=== PATIENT | female | born 1990 | race Caucasian/White ===

== ENCOUNTER 2017-07-16 09:42 | Inpatient (IN) | payer OTHER ==
--- NOTE | 2017-07-16 10:06 | PDOC ---
History of Present Illness - General History Source: Patient Exam Limitations: No Limitations - History of Present Illness Initial Comments: 07/16/17 10:23 26 y/o F (LMP: about a month ago, on control) with a PMHx of UTIs presents to the ED with diffuse abdominal pain and back pain. She reports associated nausea and one episode of vomiting yesterday. She also reports chills and subjective fever. She describes the abdominal pain as crampy and rates it an 8/10. Her last BM was this morning and was normal, with no blood. She reports that the pain doesn't feel like her usual menstrual cramps or UTI symptoms. She denies diarrhea or constipation. She denies dysuria, hematuria, or other urinary complaints. She denies headache, dizziness. FHx: mother (at 31) and sister (at 19) had gall stones <Sarah Arauz - Last Filed: 07/16/17 12:25> <Jim High - Last Filed: 07/16/17 14:36> - General Chief Complaint: Pain Stated Complaint: BACK PAIN, NAUSEA Time Seen by Provider: 07/16/17 10:00 Past History <Sarah Arauz - Last Filed: 07/16/17 12:25> - Past Medical History Asthma: No Cancer: No Cardiac Disorders: No Diabetes: No HTN: No Seizures: No Thyroid Disease: No Other medical history: none - Reproductive History (#): 2 Para: 1 Therapeutic (s) & number: No - Immunization History Immunization Up to Date: Yes - Suicide/Smoking/Psychosocial Hx Smoking Status: No Smoking History: Never smoked Have you smoked in the past 12 months: No Number of Cigarettes Smoked Daily: 0 Information on smoking cessation initiated: No Hx Alcohol Use: No Drug/Substance Use Hx: No Substance Use Type: None Hx Substance Use Treatment: No <Jim High - Last Filed: 07/16/17 14:36> - Past Medical History Allergies/Adverse Reactions: Allergies Allergy/AdvReac Type Severity Reaction Status Date / Time No Known Allergies Allergy Verified 07/16/17 09:44 Home Medications: Ambulatory Orders NK [No Known Home Medication] 07/16/17 Review of Systems - Review of Systems Able to Perform ROS?: Yes Comments:: 07/16/17 10:23 GENERAL/CONSTITUTIONAL: (+) fever, chills. No weakness. HEAD, EYES, EARS, NOSE AND THROAT: No change in vision. No ear pain or discharge. No sore throat. CARDIOVASCULAR: No chest pain or shortness of breath. RESPIRATORY: No cough, wheezing, or hemoptysis. GASTROINTESTINAL: (+) abdominal pain, nausea, vomiting. No diarrhea or constipation. GENITOURINARY: No dysuria, frequency, or change in urination. MUSCULOSKELETAL: (+) back pain. No joint or muscle swelling or pain. No neck pain. SKIN: No rash NEUROLOGIC: No headache, vertigo, loss of consciousness, or change in strength/ sensation. ENDOCRINE: No increased thirst. No abnormal weight change. HEMATOLOGIC/LYMPHATIC: No anemia, easy bleeding, or history of blood clots. ALLERGIC/IMMUNOLOGIC: No hives or skin allergy. <Sarah Arauz - Last Filed: 07/16/17 12:25> *Physical Exam - Vital Signs Last Vital Signs Temp Pulse Resp BP Pulse Ox 98.2 F 78 18 129/88 100 07/16/17 09:45 07/16/17 09:45 07/16/17 09:45 07/16/17 09:45 07/16/17 09:45 - Physical Exam Comments: 07/16/17 10:23 GENERAL: Awake, alert, and fully oriented, in no acute distress HEAD: No signs of trauma EYES: PERRLA, EOMI, sclera anicteric, conjunctiva clear ENT: Auricles normal inspection, hearing grossly normal, nares patent, oropharynx clear without exudates. Moist mucosa NECK: Normal ROM, supple, no lymphadenopathy, JVD, or masses LUNGS: Breath sounds equal, clear to auscultation bilaterally. No wheezes, and no crackles HEART: Regular rate and rhythm, normal S1 and S2, no murmurs, rubs or gallops ABDOMEN: Positive Pimentel's sign. Soft, normoactive bowel sounds. No guarding, no rebound. No masses. EXTREMITIES: Normal range of motion, no edema. No clubbing or cyanosis. No cords, erythema, or tenderness NEUROLOGICAL: Cranial nerves II through XII grossly intact. Normal speech, normal gait SKIN: Warm, Dry, normal turgor, no rashes or lesions noted. <Sarah Arauz - Last Filed: 07/16/17 12:25> - Vital Signs Last Vital Signs Temp Pulse Resp BP Pulse Ox 98.2 F 78 18 129/88 100 07/16/17 09:45 07/16/17 09:45 07/16/17 09:45 07/16/17 09:45 07/16/17 09:45 <Jim High - Last Filed: 07/16/17 14:36> ED Treatment Course - LABORATORY CBC & Chemistry Diagram: 07/16/17 10:30 07/16/17 10:30 - RADIOLOGY Radiograph Interpretation: 07/16/17 12:26 Abdoemn Ultrasound Limited Reported by Dr. Jillian Bertrand Impression: Over distended/hydrops gallbladder with multiple intraluminal stones , mild thickening of its wall and without evidence of pericholecystic free fluid. However, there is a trace of fluid/ascites seen along the inferior the inferior/posterior margin of the live. Cannot rule out acute cholecystitis. Correlate clinically to determine further evaluation. Dilated common bile duct measuring 7.5 mm for which further evaluation with MRCP is needed to rule out an intraluminal stone. <Sarah Arauz - Last Filed: 07/16/17 12:25> - LABORATORY CBC & Chemistry Diagram: 07/16/17 10:30 07/16/17 10:30 <Jim High - Last Filed: 07/16/17 14:36> *DC/Admit/Observation/Transfer - Attestations Scribe Attestion: 07/16/17 10:23 Documentation prepared by Sarah Arauz, acting as medical office rep for Jim High DO. <Sarah Arauz - Last Filed: 07/16/17 12:25> - Discharge Dispostion Admit: Yes - Attestations Physician Attestion: 07/16/17 10:04 I, Dr. Jim High, attest that this document has been prepared under my direction and personally reviewed by me in its entirety. I further attest, that it accurately reflects all work, treatment, procedures and medical decision -making performed by me. <Jim High - Last Filed: 07/16/17 14:36> Diagnosis at time of Disposition: Acute cholecystitis - Discharge Dispostion Condition at time of disposition: Improved
[2017-07-16] MEDS ORDERED: SODIUM CHLORIDE 1,000 ML IV STA (10:20)
[2017-07-16 10:27] LABS: URINE APPEARANCE CLEAR; URINE BILIRUBIN NEGATIVE (NEGATIVE); URINE BLOOD 1+ (NEGATIVE); URINE COLOR YELLOW; URINE GLUCOSE (UA) NEGATIVE (NEGATIVE); URINE KETONE NEGATIVE (NEGATIVE); URINE NITRITE NEGATIVE (NEGATIVE); URINE PROTEIN NEGATIVE (NEGATIVE)
[2017-07-16 10:30] LABS: URINE MUCUS RARE; URINE RBC 3 /hpf (0-3); URINE WBC 1 /hpf (3-5); YEAST RARE
[2017-07-16 11:19] LABS: ALBUMIN 4.1 g/dl (3.4-5.0); ANION GAP 9 (8-16); CALCIUM 8.9 mg/dL (8.5-10.1); CO2 25 mmol/L (21-32); CREATININE 0.5 mg/dL (0.55-1.02); GLUCOSE,RANDOM 113 mg/dL (74-106); SGOT/AST 946 U/L (15-37); SGPT/ALT 568 U/L (12-78)
[2017-07-16 11:21] LABS: ALK PHOS 81 U/L (45-117); BILIRUBIN,TOTAL 1.9 mg/dL (0.2-1.0); TOT PROT 7.2 g/dl (6.4-8.2)
[2017-07-16 11:36] LABS: BASOPHIL 0.3 % (0-2.0); EOSINOPHIL 0.1 % (0-4.5); MCH 29.5 pg (25.7-33.7); MCHC 33.1 g/dl (32.0-36.0); MEAN PLT VOLUME 10.6 fl (7.5-11.1); NEUTROPHILS 79.8 % (42.8-82.8); PLATELET COUNT 207 K/MM3 (134-434); RDW 14.5 % (11.6-15.6)
[2017-07-16] MEDS ORDERED: METRONIDAZOLE 500 MG PREMIXED 100 ML IVPB ONE ×2 (12:25→13:47)
[2017-07-16] MEDS ORDERED: LEVOFLOXACIN 750 MG IVPB 150 ML IVPB ONE ×2 (12:25→12:34)
--- NOTE | 2017-07-16 16:29 | CONSULT ---
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 PMHx: none PSHx: none Home Medications Medication Instructions Recorded NK [No Known Home Medication] 07/16/17 Allergies Allergy/AdvReac Type Severity Reaction Status Date / Time No Known Allergies Allergy Verified 07/16/17 09:44 REVIEW OF SYSTEMS: as above only PHYSICAL EXAM: GENERAL: Awake, alert, and fully oriented, in no acute distress. HEAD: Normal with no signs of trauma. EYES: sclera anicteric, conjunctiva clear. NECK: Normal ROM, supple without lymphadenopathy, JVD, or masses. ABDOMEN: Soft, nontender, not distended, normoactive bowel sounds, no guarding, no rebound, no masses. No organomegaly. Galbladder palpable in the RUQ MUSCULOSKELETAL: Normal ROM at all joints. No bony deformities or tenderness. No CVA tenderness. UPPER EXTREMITIES: 2+ pulses, warm, well-perfused. No cyanosis. Cap refill <2 seconds. No peripheral edema. LOWER EXTREMITIES: 2+ pulses, warm, well-perfused. No calf tenderness. No peripheral edema. NEUROLOGICAL: Normal speech, gait not observed. PSYCH: Cooperative. Good eye contact. Appropriate mood and affect. SKIN: Warm, dry, normal turgor, no rashes or lesions noted. Vital Signs Temperature 98.2 F 07/16/17 15:48 Pulse Rate 72 07/16/17 15:48 Respiratory Rate 18 07/16/17 15:48 Blood Pressure 109/69 07/16/17 15:48 O2 Sat by Pulse Oximetry (%) 100 07/16/17 15:48 Lab Results WBC 10.0 K/mm3 (4.0-10.0) 07/16/17 10:30 RBC 4.15 M/mm3 (3.60-5.2) 07/16/17 10:30 Hgb 12.2 GM/dL (10.7-15.3) D 07/16/17 10:30 Hct 37.0 % (32.4-45.2) 07/16/17 10:30 MCV 89.0 fl (80-96) 07/16/17 10:30 MCHC 33.1 g/dl (32.0-36.0) 07/16/17 10:30 RDW 14.5 % (11.6-15.6) D 07/16/17 10:30 Plt Count 207 K/MM3 (134-434) D 07/16/17 10:30 Sodium 137 mmol/L (136-145) 07/16/17 10:30 Potassium 3.7 mmol/L (3.5-5.1) 07/16/17 10:30 Chloride 103 mmol/L (98-107) 07/16/17 10:30 Carbon Dioxide 25 mmol/L (21-32) 07/16/17 10:30 Anion Gap 9 (8-16) 07/16/17 10:30 BUN 8 mg/dL (7-18) 07/16/17 10:30 Creatinine 0.5 mg/dL (0.55-1.02) L D 07/16/17 10:30 Random Glucose 113 mg/dL (74-106) H D 07/16/17 10:30 Calcium 8.9 mg/dL (8.5-10.1) 07/16/17 10:30 US/labs/w/u to date reviewed IMP: cholelithiasis; r/o choledocholithiasis PLAN: Suggest NPO/IVF/IVABS?/MRCP to evaluate for CBD stones and if positive GI evaluation for possible ERCP and related procedures and eventual lap taylor; will f/u; d/w the patient in depth Uday Copeland MD FACS Visit type - Case Type Case Type: ED Admission - Emergency Emergency Visit: Yes ED Registration Date: 07/16/17 Care time: The patient presented to the Emergency Department on the above date and was hospitalized for further evaluation of their emergent condition. - New patient This patient is new to me today: Yes Date on this admission: 07/16/17 - Critical Care Critical Care patient: No
--- NOTE | 2017-07-16 17:00 | HP ---
Admitting History and Physical - Primary Care Physician PCP: George Wright - Admission Chief Complaint: ruq pain History of Present Illness: 26 y/o F (LMP: about a month ago, on control) with a PMHx of UTIs presents to the ED with diffuse abdominal pain and back pain. She reports associated nausea and one episode of vomiting yesterday. pt also had chills , abdominal pain was crampy and rates it an 8/10. - Past Medical History ...LMP: 07/26/13 - Smoking History Smoking history: Never smoked Have you smoked in the past 12 months: No Aproximately how many cigarettes per day: 0 - Alcohol/Substance Use Hx Alcohol Use: No History of Substance Use: reports: None - Social History ADL: Independent History of Recent Travel: No Home Medications - Allergies Allergies/Adverse Reactions: Allergies Allergy/AdvReac Type Severity Reaction Status Date / Time No Known Allergies Allergy Verified 07/16/17 09:44 - Home Medications Home Medications: Ambulatory Orders NK [No Known Home Medication] 07/16/17 Physical Examination Vital Signs: Vital Signs Temperature 98.2 F 07/16/17 15:48 Pulse Rate 72 07/16/17 15:48 Respiratory Rate 18 07/16/17 15:48 Blood Pressure 109/69 07/16/17 15:48 O2 Sat by Pulse Oximetry (%) 100 07/16/17 15:48 Constitutional: Yes: No Distress HENT: Yes: Atraumatic Neck: Yes: Supple Cardiovascular: Yes: Regular Rate and Rhythm Respiratory: Yes: CTA Bilaterally Gastrointestinal: Yes: Normal Bowel Sounds, Tenderness (ruq) Extremities: Yes: WNL Neurological: Yes: Alert, Oriented Imaging - Results Ultrasound: Report Reviewed Problem List - Problems (1) Acute cholecystitis Assessment/Plan: for mrcp possible surgery Code(s): K81.0 - ACUTE CHOLECYSTITIS Assessment/Plan Laboratory Tests 07/16/17 07/16/17 07/16/17 10:13 10:30 10:30 WBC 10.0 RBC 4.15 Hgb 12.2 D Hct 37.0 MCV 89.0 MCH 29.5 MCHC 33.1 RDW 14.5 D Plt Count 207 D MPV 10.6 Neutrophils % 79.8 Lymphocytes % 8.8 D Monocytes % 11.0 H Eosinophils % 0.1 Basophils % 0.3 Sodium 137 Potassium 3.7 Chloride 103 Carbon Dioxide 25 Anion Gap 9 BUN 8 Creatinine 0.5 L D Creat Clearance w eGFR > 60 Random Glucose 113 H D Calcium 8.9 Total Bilirubin 1.9 H D AST 946 H D ALT 568 H D Alkaline Phosphatase 81 D Total Protein 7.2 Albumin 4.1 D Urine Color Yellow Urine Appearance Clear Urine pH 7.0 D Urine Protein Negative Urine Glucose (UA) Negative Urine Ketones Negative Urine Blood 1+ H Urine Nitrite Negative Urine Bilirubin Negative Urine Urobilinogen 2.0 H Urine RBC 3 Urine WBC 1 Ur Epithelial Cells Few Urine Mucus Rare Urine Yeast Rare Urine HCG, Qual Negative Active Medications Generic Name Dose Route Start Last Admin Trade Name Freq PRN Reason Stop Dose Admin Fentanyl 50 mcg 07/18/17 13:35 07/18/17 14:55 Sublimaze Injection - IVPUSH 07/21/17 13:36 25 mcg [id number] PRN Administration PAIN Sodium Chloride 1,000 mls @ 100 mls/hr 07/18/17 13:59 Normal Saline - IV ASDIR [facility] Morphine Sulfate 2 mg 07/18/17 15:05 Morphine Injection - IVPUSH Q6H PRN PAIN LEVEL 6-10 Ondansetron HCl 4 mg 07/18/17 13:35 07/18/17 14:30 Zofran Injection IVPUSH 07/18/17 19:36 4 mg Q6H PRN Administration NAUSEA AND/OR VOMITING Oxycodone HCl 5 mg 07/18/17 13:41 Roxicodone - PO Q6H PRN PAIN LEVEL 1-5 Oxycodone HCl 10 mg 07/18/17 13:42 Roxicodone - PO Q6H PRN PAIN LEVEL 6-10 Promethazine HCl 12.5 mg 07/18/17 13:35 Phenergan Injection - IVPUSH 07/18/17 19:36 Q6H PRN NAUSEA-FOR RESCUE AFTER 15 MIN
[2017-07-16] MEDS ORDERED: HYDROmorphone HCL CARPU-JECT 1 MG/1 ML DISP.SYRIN IVPB PRN (17:02)
[2017-07-16 17:14] VITALS: BMI 25.4
[2017-07-16] MEDS ORDERED: FLU VACCINE QUAD 60 MCG/0.5 ML (MDV 17-18) IM ONE (17:15)
[2017-07-16] MEDS ORDERED: cefTRIAXone SODIUM 1 GM VIAL ONE (17:21)
[2017-07-16] MEDS ORDERED: DEXTROSE 5%-WATER - 50 ML IVPB ONE (17:21)
[2017-07-16] MEDS: SODIUM CHLORIDE 1,000 ML IV SCH (17:36)
[2017-07-16] MEDS: CEFTRIAXONE 1 GM in DEXTROSE 5%-WATER - 50 ML IVPB SCH (17:38)
[2017-07-17] MEDS: SODIUM CHLORIDE 1,000 ML IV SCH ×3 (04:20→18:00)
[2017-07-17 08:26] LABS: BASOPHIL 0.4 % (0-2.0); EOSINOPHIL 2.1 % (0-4.5); MCH 29.5 pg (25.7-33.7); MCHC 32.9 g/dl (32.0-36.0); MEAN CELL VOLUME 89.5 fl (80-96); MEAN PLT VOLUME 10.7 fl (7.5-11.1); NEUTROPHILS 61.6 % (42.8-82.8); PLATELET COUNT 179 K/MM3 (134-434); RDW 14.7 % (11.6-15.6); WHITE BLOOD COUNT 7.1 K/mm3 (4.0-10.0)
[2017-07-17 08:56] LABS: ALBUMIN 3.3 g/dl (3.4-5.0); ALK PHOS 94 U/L (45-117); ANION GAP 11 (8-16); BILIRUBIN,TOTAL 2.1 mg/dL (0.2-1.0); CALCIUM 8.5 mg/dL (8.5-10.1); CO2 24 mmol/L (21-32); CREATININE 0.5 mg/dL (0.55-1.02); GLUCOSE,RANDOM 80 mg/dL (74-106); SGOT/AST 377 U/L (15-37); TOT PROT 6.1 g/dl (6.4-8.2)
[2017-07-17] MEDS ORDERED: DEXTROSE 5%-WATER - 50 ML IVPB ONE (09:11)
[2017-07-17] MEDS ORDERED: cefTRIAXone SODIUM 1 GM VIAL ONE (09:11)
[2017-07-17] MEDS: CEFTRIAXONE 1 GM in DEXTROSE 5%-WATER - 50 ML IVPB SCH (09:17)
--- NOTE | 2017-07-17 09:22 | PN ---
Progress Note (short form) - Note Progress Note: Attending Surgeon No c/o per se; wants to eat VSS AF abdomen-soft; non tender; gallbladder ? not as easily palpated today; o/w negative. WBC-wnl LFT's pending today MRI ordered and pending IMP: cholelithiasis; r/o choledocholithiasis PLAN: Continue present tx.; further plan pending MRCP and results of repeat LFT' s. Uday Copeland MD FACS
[2017-07-17 09:29] LABS: SGPT/ALT 619 U/L (12-78)
--- NOTE | 2017-07-17 17:45 | PN ---
Progress Note, Physician - Current Medication List Current Medications: Active Medications Hydromorphone HCl (Dilaudid Injection -) 1 mg IVPB Q3H PRN PRN Reason: PAIN Sodium Chloride (Normal Saline -) 1,000 mls @ 100 mls/hr IV ASDIR [facility] Last Admin: 07/17/17 15:09 Dose: 100 mls/hr Ceftriaxone Sodium 1 gm/ (Dextrose) 50 mls @ 100 mls/hr IVPB DAILY [facility] Last Admin: 07/17/17 09:17 Dose: 100 mls/hr - Objective Vital Signs: Vital Signs Temperature 98.0 F 07/17/17 15:13 Pulse Rate 70 07/17/17 15:13 Respiratory Rate 18 07/17/17 15:13 Blood Pressure 104/58 07/17/17 15:13 O2 Sat by Pulse Oximetry (%) 98 07/17/17 09:00 Constitutional: Yes: No Distress HENT: Yes: Atraumatic Neck: Yes: Supple Cardiovascular: Yes: Regular Rate and Rhythm Respiratory: Yes: CTA Bilaterally Gastrointestinal: Yes: Normal Bowel Sounds Extremities: Yes: WNL Neurological: Yes: Alert, Oriented Labs: CBC, BMP 07/17/17 06:00 07/17/17 06:00 Problem List - Problems (1) Acute cholecystitis Assessment/Plan: for mrcp saw surgery note Code(s): K81.0 - ACUTE CHOLECYSTITIS
--- NOTE | 2017-07-18 08:13 | PN ---
Progress Note (short form) - Note Progress Note: 26 yo female admitted with RUQ tenderness. Currently, resting comfortably without complaint. S/p MRCP yesterday which identified acute cholycystitis without biliary obstruction. T.bili is rising yet AST/ALT improving. Denies n/v/f/c, abd pain, CP or SOB. Last Vital Signs Temp Pulse Resp BP Pulse Ox 98.3 F 90 20 113/57 99 07/18/17 05:51 07/18/17 05:51 07/18/17 05:51 07/18/17 05:51 07/17/17 20:49 TRENDS 07/16/17 07/16/17 07/17/17 10:30 10:30 06:00 WBC 10.0 7.1 Total Bilirubin 1.9 H D 2.1 AST 946 H D 377 ALT 568 H D 619 Gen: alert. nad abd: soft. nt. nd. Le: soft. nt bilat Problem List - Problems (1) Acute cholecystitis Assessment/Plan: Awaiting results of morning LFTs. If still elevated, we recommend getting GI Consult. Plan on lap taylor 07/20/17 if no GI intervention needed. Medical optimization / clearance for impending surgical procedure. Code(s): K81.0 - ACUTE CHOLECYSTITIS
[2017-07-18] MEDS ORDERED: cefTRIAXone SODIUM 1 GM VIAL ONE (09:03)
[2017-07-18] MEDS ORDERED: DEXTROSE 5%-WATER - 50 ML IVPB ONE (09:04)
[2017-07-18] MEDS: CEFTRIAXONE 1 GM in DEXTROSE 5%-WATER - 50 ML IVPB SCH (09:07)
[2017-07-18 09:18] LABS: ALBUMIN 3.4 g/dl (3.4-5.0); BILIRUBIN,DIRECT 0.3 mg/dL (0.0-0.2); BILIRUBIN,TOTAL 1.5 mg/dL (0.2-1.0); TOT PROT 6.3 g/dl (6.4-8.2)
[2017-07-18] MEDS ORDERED: BUPIVACAINE HCL/PF 0.5% (5MG/ML) 10 ML VIAL ONE (10:58)
[2017-07-18] MEDS ORDERED: MIDAZOLAM HCL 2 MG/2 ML SINGLE DOSE VIAL ONE (10:59)
[2017-07-18] MEDS ORDERED: ROCURONIUM BROMIDE 50 MG/5 ML VIAL ONE ×2 (11:00→11:54)
[2017-07-18] MEDS ORDERED: PROPOFOL 20 ML ONE ×2 (11:00)
[2017-07-18] MEDS ORDERED: GLYCOPYRROLATE 0.2 MG/1 ML VIAL ONE (12:14)
[2017-07-18] MEDS ORDERED: LIDOCAINE HCL/PF 2% SDV 5ML VIAL ONE (12:14)
[2017-07-18] MEDS ORDERED: NEOSTIGMINE METHYLSULFATE 0.5 MG/ML - 10 ML MDV ONE (12:14)
[2017-07-18] MEDS ORDERED: KETOROLAC TROMETHAMINE 30 MG/1 ML VIAL ONE (12:14)
[2017-07-18] MEDS ORDERED: LIDOCAINE HCL 2% JELLY (5 ML/TUBE) ONE (12:14)
[2017-07-18] MEDS ORDERED: DEXAMETHASONE SOD PHOSPHATE 4 MG/1 ML VIAL ONE (12:14)
[2017-07-18] MEDS ORDERED: BUPIVACAINE HCL/PF 0.5% (5MG/ML) 10 ML VIAL IJ ONE ×3 (13:19)
[2017-07-18] MEDS ORDERED: PROMETHAZINE HCL 25 MG/1 ML VIAL IVPUSH PRN (13:35)
[2017-07-18] MEDS ORDERED: ONDANSETRON 4 MG/2 ML VIAL IVPUSH PRN (13:35)
[2017-07-18] MEDS ORDERED: oxyCODONE HCL 5 MG TABLET PO PRN (13:42)
[2017-07-18] MEDS ORDERED: SODIUM CHLORIDE 1,000 ML IV SCH (13:59)
[2017-07-18] MEDS ORDERED: ONDANSETRON 4 MG/2 ML VIAL ONE (14:29)
--- NOTE | 2017-07-18 14:57 | OP ---
Operative Note - Note: Operative Date: 07/18/17 Pre-Operative Diagnosis: acute cholecystitis, cholelithiasis Operation: laparoscopic cholecystectomy Surgeon: Uday Copeland Apartment Assistant Manager: Angelina Aragon Anesthesiologist/SIGN PAINTER: Vivek Shepard Anesthesia: General Specimens Removed: cecum/appendix Estimated Blood Loss (mls): 20 Fluid Volume Replaced (mls): 1,200 Operative Report Dictated: Yes
--- NOTE | 2017-07-18 14:58 | SURG ---
Surgery Roll Up Helper Note Roll Up Helper: Angelina Aragon PA-C Date of Service: 07/18/17 Diagnosis: acute cholecystitis, cholelithiasis Procedure: laparoscopic cholecystectomy I was present for the entirety of the operative procedure. For further detail, please refer to operative report. Visit type - Case Type Case Type: ED Admission - Emergency Emergency Visit: Yes ED Registration Date: 07/16/17 Care time: The patient presented to the Emergency Department on the above date and was hospitalized for further evaluation of their emergent condition. - New patient This patient is new to me today: Yes Date on this admission: 07/18/17 - Critical Care Critical Care patient: No
[2017-07-18] MEDS ORDERED: morphine CARPU-JECT 2 MG/1 ML DISP.SYRIN IVPUSH PRN (15:05)
--- NOTE | 2017-07-18 19:02 | PN ---
Progress Note, Physician History of Present Illness: some pain at surgery site - Current Medication List Current Medications: Active Medications Fentanyl (Sublimaze Injection -) 50 mcg IVPUSH [id number] PRN PRN Reason: PAIN Stop: 07/21/17 13:36 Last Admin: 07/18/17 14:55 Dose: 25 mcg Sodium Chloride (Normal Saline -) 1,000 mls @ 100 mls/hr IV ASDIR [facility] Morphine Sulfate (Morphine Injection -) 2 mg IVPUSH Q6H PRN PRN Reason: PAIN LEVEL 6-10 Ondansetron HCl (Zofran Injection) 4 mg IVPUSH Q6H PRN PRN Reason: NAUSEA AND/OR VOMITING Stop: 07/18/17 19:36 Last Admin: 07/18/17 14:30 Dose: 4 mg Oxycodone HCl (Roxicodone -) 5 mg PO Q6H PRN PRN Reason: PAIN LEVEL 1-5 Oxycodone HCl (Roxicodone -) 10 mg PO Q6H PRN PRN Reason: PAIN LEVEL 6-10 Promethazine HCl (Phenergan Injection -) 12.5 mg IVPUSH Q6H PRN PRN Reason: NAUSEA-FOR RESCUE AFTER 15 MIN Stop: 07/18/17 19:36 - Objective Vital Signs: Vital Signs Temperature 97.8 F 07/18/17 15:58 Pulse Rate 86 07/18/17 15:58 Respiratory Rate 18 07/18/17 15:58 Blood Pressure 96/68 07/18/17 15:58 O2 Sat by Pulse Oximetry (%) 99 07/18/17 15:58 HENT: Yes: Atraumatic Neck: Yes: Supple Cardiovascular: Yes: Regular Rate and Rhythm Respiratory: Yes: CTA Bilaterally Gastrointestinal: Yes: Normal Bowel Sounds, Tenderness (at the surgery site) Extremities: Yes: WNL Edema: No Peripheral Pulses WNL: Yes Neurological: Yes: Alert, Oriented Labs: CBC, BMP 07/17/17 06:00 07/17/17 06:00 Problem List - Problems (1) Acute cholecystitis Assessment/Plan: s/p cholecystectomy advance diet as tolerated Code(s): K81.0 - ACUTE CHOLECYSTITIS Assessment/Plan dc in am if stable
[2017-07-18] MEDS: oxyCODONE HCL 5 MG TABLET PO PRN (21:47)
[2017-07-19] MEDS: oxyCODONE HCL 5 MG TABLET PO PRN (06:10)
[2017-07-19 06:32] VITALS: TEMP 98.7
[2017-07-19 07:33] LABS: BASOPHIL 0.2 % (0-2.0); EOSINOPHIL 0.2 % (0-4.5); MCH 29.7 pg (25.7-33.7); MCHC 33.7 g/dl (32.0-36.0); MEAN CELL VOLUME 88.1 fl (80-96); MEAN PLT VOLUME 10.2 fl (7.5-11.1); NEUTROPHILS 74.4 % (42.8-82.8); PLATELET COUNT 194 K/MM3 (134-434); RDW 14.2 % (11.6-15.6); WHITE BLOOD COUNT 10.8 K/mm3 (4.0-10.0)
[2017-07-19 07:47] LABS: ALBUMIN 3.2 g/dl (3.4-5.0); ANION GAP 8 (8-16); BILIRUBIN,DIRECT 0.2 mg/dL (0.0-0.2); CALCIUM 8.7 mg/dL (8.5-10.1); CO2 24 mmol/L (21-32); CREATININE 0.5 mg/dL (0.55-1.02); GLUCOSE,RANDOM 82 mg/dL (74-106); SGOT/AST 62 U/L (15-37); SGPT/ALT 292 U/L (12-78); TOT PROT 6.1 g/dl (6.4-8.2)
[2017-07-19 07:48] LABS: ALK PHOS 70 U/L (45-117)
--- NOTE | 2017-07-19 08:43 | PN ---
Progress Note (short form) - Note Progress Note: Anesthesiology Post-op POD#1 s/p laparoscopic cholecystectomy under GA. Pt is sitting up in bed. She feels well and though she c/o pain, the medications do help. She is eating without difficulty. No apparent anesthesia-related issues. VSS.
--- NOTE | 2017-07-19 10:43 | PN ---
Progress Note (short form) - Note Progress Note: Attending Surgeon POD #1 Minimal c/o port site tenderness; tolerated diet and voided VSS AF abdomen-soft; flat; port site dressings c/d/i labs noted IMP: stable post op day # 1 s/p lap taylor PLAN: D/c to office f/u w/me 7-10 days post op. Uday Copeland MD FACS
[2017-07-19 12:34] VITALS: BP 120/79; PULSE 92
--- NOTE | 2017-07-19 15:51 | PATH ---
Surgical Pathology Report Patient Name: ISELA MCCAIN Med. Rec. #: [id number] /Age/Gender: 1990 (Age: 26) / F Account: [id number] Location: [address] [place] [address]/[facility] Taken: 07/18/2017 Received: 07/18/2017 Reported: 07/19/2017 Physicians: Jassi Hendrix MD Specimen(s) Received GALLBLADDER Clinical History Acute cholecystitis Final Diagnosis GALLBLADDER, CHOLECYSTECTOMY: CHRONIC CHOLECYSTITIS AND CHOLELITHIASIS. Electronically Signed Quinten Fraga M.D. Gross Description Received in formalin, labeled "gallbladder," is a 13.0 x 3.3 x 3.0 cm. gallbladder with a 0.2 cm. in length portion of cystic duct attached. The outer surface is chowdhury-pink and varies from smooth to shaggy. The lumen contains clear, tenacious bile as well as multiple green, irregular to fragmented choleliths ranging from 0.5-1.0 cm in greatest dimension. The mucosa is chowdhury and eroded. The wall of the gallbladder ranges from 0.1-0.4 cm. in thickness. Wire Fence Erector sections are submitted in one cassette. 07/18/201707/18/2017
--- NOTE | 2017-07-19 17:54 | DS ---
Physical Examination Vital Signs: Vital Signs Temperature 98.7 F 07/19/17 06:00 Pulse Rate 92 H 07/19/17 10:00 Respiratory Rate 18 07/19/17 10:00 Blood Pressure 120/79 07/19/17 10:00 O2 Sat by Pulse Oximetry (%) 100 07/18/17 21:00 Labs: CBC, BMP 07/19/17 06:40 07/19/17 06:40 Discharge Summary Reason For Visit: ACUTE CHOLECYSTITIS Condition: Improved - Instructions Diet, Activity, Other Instructions: Dr. Copeland Discharge Instructions Dear ISELA MCCAIN, Post Operative Instructions Physical activity Resume your normal everyday activity as tolerated no heavy lifting or exercise until seen by your surgeon. You may walk unlimited amounts of and climb stairs. You may resume driving the car when you feel safe and comfortable behind the wheel. Wound care If you have a bandage, leave it on, and keep dry for 48 - 72 hours. After that time discard the outer bandage. If there are tapes on the skin under the outer bandage, leave them in place. They will peel off in the next 7 to 10 days. Do Not peel them off. You may shower 2 days after surgery. If there are tapes present on the skin, they can get wet. Diet There are no dietary restrictions. Eat healthy, high-fiber foods. Drink 6 to 8 glasses of liquid each day. This will assist in keeping your bowels are regular. Pain management You may take Tylenol or acetaminophen or Ibuprofen (for example, Motrin, Advil etc.) Any pain prescription medication ordered should be taken as prescribed for moderate to severe pain. Call Dr. Copeland for any of the following: Severe pain not relieved by medication Fever of 101 or higher Excessive bleeding or drainage on dressing Call the office at [phone] for a post operative appointment in 7 - 10 days. Disposition: HOME - Home Medications Comprehensive Discharge Medication List: Ambulatory Orders NK [No Known Home Medication] 07/16/17 dc home
--- NOTE | 2017-07-20 09:59 | OP ---
DATE OF OPERATION: 07/18/2017 PREOPERATIVE DIAGNOSIS: Acute cholecystitis, cholelithiasis. PREOPERATIVE DIAGNOSIS: Acute cholecystitis, cholelithiasis. PROCEDURE: Laparoscopic cholecystectomy. SURGEON: Uday Copeland MD INSPECTOR EYEGLASS: LUISANA Goodman and Emily Sweeney PA-C FINDINGS: There was acute chronic cholecystitis and cholelithiasis. There was a prominent anterior branch of the cystic artery and a smaller posterior branch. The rest of the findings were unremarkable. DESCRIPTION OF PROCEDURE: The patient was placed on the operating room table in supine position. After the induction of general anesthesia, the patient's abdomen was prepped with ChloraPrep and draped in sterile fashion. Time-out was taken and then pneumoperitoneum established above the umbilicus using a Veress needle to a pressure of 15 mmHg. A 5-mm port was placed and laparoscopy carried out, and the previously noted findings were observed. Additional 5-mm lateral ports in the subxiphoid, 12-mm port was placed, and the gallbladder was placed on cephalad and lateral traction and the peritoneum opened over the neck of the gallbladder using electrocautery. Prior to this, the gallbladder was decompressed using an aspirating needle. The cystic duct was identified and dissected proximally and distally for length and the cystic artery identified as well. A critical view of safety was taken and then the duct was divided between large hemoclips twice proximally and twice distally. The anterior branch of the cystic artery was traced all the way up onto the gallbladder and was divided proximally and distally with 10-mm hemoclips. The posterior branch was similarly identified and clipped with 5-mm hemoclips and divided. The gallbladder was then removed from the liver bed in a retrograde fashion using electrocautery and then placed in an EndoCatch and brought out through the subxiphoid port. Pneumoperitoneum was re-established. Irritation was carried out, hemostasis verified and then all ports were removed under laparoscopic vision without evidence of bleeding from any of the port sites. The pneumoperitoneum was evacuated, and all port sites were infiltrated with 0.5% Marcaine and the skin edges were closed with 4-0 Vicryl in a subcuticular continuous fashion. Steri-Strips and Band-Aid dressings were placed and the procedure terminated at this point and the patient aroused from general anesthesia and transferred to the post anesthesia care unit in my accompaniment. ESTIMATED BLOOD LOSS: 10 mL. REPLACEMENTS: Crystalloid. SPECIMENS: Gallbladder and contents to pathology. I; Uday Copeland MD was physically present in the operating room from the time the patient was placed on the OR table until she was transferred to the PACU in my accompaniment. Uday Copeland MD [facility] [id number] MTDD
== END 2017-07-19 12:40 | disposition home or self-care (01) | DRG 263 ==
LOC: JER 09:42 → JERBED 14:56 → J6S 16:53
PROVIDERS: ADMIT Internal Medicine; ATTEND Internal Medicine
PROC: 0FT44ZZ Resection of Gallbladder, Percutaneous Endoscopic Approach (ICD-10-PCS; principal; 2017-07-18 10:30)
DX: K80.00 Calculus of gallbladder with acute cholecystitis without obstruction (principal); K82.1 Hydrops of gallbladder; R18.8 Other ascites
CPT/HCPCS: 36415; 74182-TC; 76705-TC; 80048; 80053; 80076; 81003; 81015; 84703; 85025; 88304-TC; 90688; 94760; 99283-25; G0008

== ENCOUNTER 2021-04-07 21:08 | Inpatient (IN) | payer OTHER ==
[2021-04-07] MEDS ORDERED: ELECTROLYTE-148 SOLN 1,000 ML IV SCH (22:00)
[2021-04-07 22:11] VITALS: BMI 31.4
[2021-04-07 22:13] LABS: BASO % 0.2 % (0-2.0); EOS % 0.6 % (0-4.5); HEMATOCRIT 36.4 % (32.4-45.2); HEMOGLOBIN 12.3 GM/dL (10.7-15.3); MCH 30.9 pg (25.7-33.7); MCHC 33.9 g/dl (32.0-36.0); MEAN CELL VOLUME 91.1 fl (80-96); MEAN PLT VOLUME 11.3 fl (7.5-11.1); MONO % 9.2 % (3.8-10.2); PLATELET COUNT 119 K/MM3 (134-434); RBC 3.99 M/mm3 (3.60-5.2); RDW 14.4 % (11.6-15.6); WHITE BLOOD COUNT 9.8 K/mm3 (4.0-10.0)
[2021-04-07 22:20] LABS: INR 0.96 (0.83-1.09); PROTHROMBIN TIME (PATIENT) 11.6 SEC (9.7-13.0)
[2021-04-07 22:22] LABS: ACTIVATED PTT 29.6 SECONDS (25.2-36.5)
[2021-04-07 22:31] LABS: CALCIUM 9.4 mg/dL (8.5-10.1)
[2021-04-07 22:32] LABS: BLOOD UREA NITROGEN 10.5 mg/dL (7-18)
[2021-04-07 22:35] LABS: CREATININE 0.6 mg/dL (0.55-1.3)
[2021-04-08] MEDS ORDERED: OXYTOCIN 20 UNITS in 0.9% NS 20 UNIT/1,000 ML INFUS.BAG IV ONE (00:04)
[2021-04-08] MEDS ORDERED: OXYTOCIN 30 UNITS in 0.9% NS 30 UNIT/500 ML INFUS.BAG IVPB SCH (02:30)
[2021-04-08] MEDS ORDERED: BENZOCAINE 20% 57 GM BOTTLE TP PRN (02:48)
[2021-04-08] MEDS ORDERED: BENZOCAINE 28 GM HEMORRHOIDAL OINTMENT TP PRN (02:48)
[2021-04-08] MEDS ORDERED: METHYLERGONOVINE MALEATE 0.2 MG/1 ML AMP IM PRN (02:48)
[2021-04-08] MEDS ORDERED: BISACODYL 10 MG SUPP.RECT RC PRN (02:48)
[2021-04-08] MEDS ORDERED: WITCH HAZEL 50% (TUCKS) 40 PAD/JAR PAD TP PRN (02:48)
[2021-04-08] MEDS ORDERED: D5W-LR W/ 20 UNITS OXYTOCIN 20 UNIT/1,000 ML INFUS.BAG IV SCH (03:00)
[2021-04-08] MEDS: IBUPROFEN 600 MG TABLET (FP) PO PRN ×4 (03:20→20:11)
[2021-04-08] MEDS: ACETAMINOPHEN 325 MG TABLET (FP) PO PRN ×4 (03:20→20:11)
[2021-04-08] MEDS ORDERED: ACETAMINOPHEN 325 MG TABLET (FP) ONE (03:21)
[2021-04-08] MEDS ORDERED: IBUPROFEN 600 MG TABLET (FP) PO ONE (03:21)
[2021-04-08] MEDS: FERROUS SO4 325 MG TABLET (FP) PO SCH ×2 (11:38→21:08)
[2021-04-08] MEDS: PRENATAL VITAMINS W/ FOLIC ACID TABLET (FP) PO SCH (11:39)
[2021-04-08] MEDS: SENNOSIDES/DOCUSATE COMBO (SENNA PLUS) TABLET (UD) PO PRN (20:11)
[2021-04-09 07:41] LABS: BASO % 0.4 % (0-2.0); EOS % 0.9 % (0-4.5); HEMATOCRIT 32.9 % (32.4-45.2); HEMOGLOBIN 10.9 GM/dL (10.7-15.3); LYMPH % 17.5 % (8-40); MCH 30.4 pg (25.7-33.7); MCHC 33.1 g/dl (32.0-36.0); MEAN CELL VOLUME 91.7 fl (80-96); MONO % 7.5 % (3.8-10.2); NEUT % 73.7 % (42.8-82.8); PLATELET COUNT 135 K/MM3 (134-434); RBC 3.59 M/mm3 (3.60-5.2); WHITE BLOOD COUNT 13.5 K/mm3 (4.0-10.0)
[2021-04-09] MEDS: FERROUS SO4 325 MG TABLET (FP) PO SCH ×2 (09:25→21:01)
[2021-04-09] MEDS: IBUPROFEN 600 MG TABLET (FP) PO PRN ×2 (09:25→21:01)
[2021-04-09] MEDS: ACETAMINOPHEN 325 MG TABLET (FP) PO PRN ×2 (09:26→21:02)
[2021-04-09] MEDS: PRENATAL VITAMINS W/ FOLIC ACID TABLET (FP) PO SCH (09:26)
[2021-04-09] MEDS: SENNOSIDES/DOCUSATE COMBO (SENNA PLUS) TABLET (UD) PO PRN (21:01)
[2021-04-09 23:03] VITALS: TEMP 98.2
[2021-04-10] MEDS: IBUPROFEN 600 MG TABLET (FP) PO PRN (08:27)
[2021-04-10] MEDS: ACETAMINOPHEN 325 MG TABLET (FP) PO PRN (08:27)
[2021-04-10] MEDS: PRENATAL VITAMINS W/ FOLIC ACID TABLET (FP) PO SCH (09:04)
[2021-04-10 10:19] VITALS: BP 130/81; PULSE 90
[2021-04-10] MEDS: FERROUS SO4 325 MG TABLET (FP) PO SCH (10:26)
== END 2021-04-10 12:10 | disposition home or self-care (01) | DRG 560 ==
LOC: JDEL 21:08 → JLDR 21:09 → J3W 04-08 04:50
PROVIDERS: ADMIT Internal Medicine; ATTEND Internal Medicine
PROC: 10E0XZZ Delivery of Products of Conception, External Approach (ICD-10-PCS; principal; 2021-04-08)
DX: O80 Encounter for full-term uncomplicated delivery (principal); Z3A.39 39 weeks gestation of pregnancy; Z37.0 Single live birth
CPT/HCPCS: 36415; 59409; 80048; 85025; 85610; 85730; 86780; 86850; 86900; 86901; C9803; U0003; U0005